=== PATIENT | male | born 1955 | race African-American/Black ===

== ENCOUNTER 2018-10-01 06:15 | Inpatient (IN) | payer BC ==
[2018-10-01 06:59] LABS: #Lymphocytes 1.3 thou/uL (1.20-3.40); #Monocytes 0.8 thou/uL (0.11-0.59); #Neutrophils 6.7 thou/uL (1.40-6.50); %Basophils 0.1 % (0.0-1.0); %Eosinophils 0.4 % (0.0-10.0); %Lymphocytes 14.7 % (21.0-51.0); %Monocytes 9.1 % (0.0-10.0); %Neutrophils 75.8 % (42.0-75.0); Hemoglobin 13.7 g/dL (14.0-18.0); Mean Corpuscular HGB CONC 30.9 g/dL (32.0-36.0); Mean Corpuscular Hemoglobin 30.8 pg (27.0-31.0); Mean Corpuscular Volume 99.7 fL (78.0-98.0); Platelet Count 278 thou/uL (130-400); RBC Distribution Width 12.4 % (11.5-14.5); Red Blood Cell (RBC) Count 4.46 mill/uL (4.70-6.10); White Blood Cell (WBC) Count 8.9 thou/uL (4.8-10.8)
[2018-10-01 07:12] LABS: ALT (SGPT) 40 U/L (8-55); AST (SGOT) 24 U/L (5-34); Alkaline Phosphatase 99 U/L (40-150); Anion Gap 33 mmol/L (10-20); BUN (Urea Nitrogen) 45 mg/dL (8.4-25.7); Bilirubin, Total 0.5 mg/dL (0.2-1.2); Calc. Creatinine Clearance 0 mL/min (70-130); Calcium 10.4 mg/dL (7.8-10.44); Carbon Dioxide 16 mmol/L (23-31); Chloride 93 mmol/L (98-107); Estimated GFR-MDRD 24; Globulin 3.3 g/dL (2.4-3.5); Potassium 5.4 mmol/L (3.5-5.1); Protein, Total 7.3 g/dL (5.8-8.1); Sodium 137 mmol/L (136-145)
[2018-10-01 07:20] LABS: Glucose 1047 mg/dL (80-115)
[2018-10-01] MEDS ORDERED: Insulin Regular 300 UNITS/3 ML VIAL ONE (07:35)
--- NOTE | 2018-10-01 08:28 | CT ---
CT OF HEAD NONCONTRAST: INDICATION: Weakness, lethargy. FINDINGS: There is no acute intracranial hemorrhage, mass effect, midline shift, or ventriculomegaly. Mild muc osal prominence is seen at the paranasal sinuses. IMPRESSION: No acute intracranial abnormalities. POS: BROOKE
[2018-10-01 08:30] LABS: Bilirubin Negative (Negative); Blood, Urine Negative (Negative); Clarity CLEAR (Clear); Glucose, Urine (Dipstick) >=1000 mg/dL (Negative); Leukocyte Negative (Negative); Nitrite Negative (Negative); Protein, Urine (Dipstick) Negative (Neg-Trace); Specific Gravity, Urine 1.029 (1.002-1.036); Urobilinogen 0.2 mg/dL (0.2-1.0)
[2018-10-01] MEDS ORDERED: HUMULIN R 100 UNITS in Sodium Chloride 0.9% 100 ML IVPB SCH ×2 (08:30→12:10)
[2018-10-01 08:37] LABS: Bicarbonate (HCO3v) 17.9 mmol/L (22.0-28.0); CO2 Tension (PvCO2) 37.4 mmHg (40.0-50.0); Calcium, Ionized 1.19 mmol/L (See Comments:); Chloride 104 mmol/L (98-107); Hemoglobin - Calc 15.7 g/dL (14.0-18.0); O2 Tension (PvO2) 30.2 mmHg (35.0-45.0); Potassium 4.4 mmol/L (3.5-5.1); Sodium 135 mmol/L (138-145); T. Carbon Dioxide 19.1 mmol/L (22.0-28.0); pH (Venous) 7.289 (7.320-7.430)
[2018-10-01] MEDS ORDERED: Acetaminophen 325 MG TAB PO PRN (12:10)
[2018-10-01] MEDS ORDERED: Dextrose 5 %-0.45 % NaCl 1,000 ML IV PRN (12:10)
[2018-10-01] MEDS ORDERED: Sodium Chloride 0.9% 1,000 ML IV PRN ×4 (12:10)
[2018-10-01] MEDS ORDERED: hydrALAZINE 20 MG/ML VIAL SLOW IVP PRN (12:10)
[2018-10-01] MEDS ORDERED: CCU Electrolyte Replacement 1 EACH IVPB ONE (12:10)
[2018-10-01] MEDS ORDERED: Magnesium 2 GM/50 ML 2 GM in Premix Bag 1 BAG IVPB PRN (12:13)
[2018-10-01] MEDS ORDERED: Magnesium Oxide 400 MG TAB PO PRN ×2 (12:13)
[2018-10-01] MEDS ORDERED: Potassium Chloride 40 MEQ in Premix Bag 1 BAG IVPB PRN (12:13)
[2018-10-01] MEDS ORDERED: Potassium Phosphate 9 MMOL in Sodium Chloride 0.9% 100 ML IVPB PRN (12:13)
[2018-10-01] MEDS ORDERED: Potassium Phosphate 12 MMOL in Sodium Chloride 0.9% 250 ML 250 ML IV PRN (12:13)
[2018-10-01] MEDS ORDERED: CCU ELECTROLYTE REPLACEMENT PROTOCOL FS PRN (12:13)
[2018-10-01] MEDS ORDERED: PHOS-NAK 1 PKT PACK PO PRN ×2 (12:13)
[2018-10-01] MEDS ORDERED: Potassium Phosphate 15 MMOL in Sodium Chloride 0.9% 250 ML 250 ML IV PRN (12:13)
[2018-10-01] MEDS ORDERED: Potassium Chloride 20 MEQ TAB PO PRN (12:13)
[2018-10-01] MEDS ORDERED: Potassium Chloride 40 MEQ in Sodium Chloride 0.9% 250 ML 250 ML IVPB PRN (12:13)
[2018-10-01] MEDS ORDERED: Aspirin 300 MG Suppository PR SCH (12:30)
[2018-10-01 12:45] VITALS: BMI 35.1
[2018-10-01] MEDS ORDERED: Prevnar 13-Val Conj/PF 0.5 ML SYRINGE IM ONE (13:00)
[2018-10-01 14:05] LABS: Anion Gap 25 mmol/L (10-20); BUN (Urea Nitrogen) 40 mg/dL (8.4-25.7); Calc. Creatinine Clearance 44 mL/min (70-130); Calcium 10.5 mg/dL (7.8-10.44); Carbon Dioxide 20 mmol/L (23-31); Chloride 104 mmol/L (98-107); Estimated GFR-MDRD 30; Potassium 4.1 mmol/L (3.5-5.1); Sodium 145 mmol/L (136-145)
[2018-10-01 14:17] LABS: Glucose 583 mg/dL (80-115)
[2018-10-01] MEDS: NS 0.9% w/ 20 MEQ KCL 1,000 ML IV PRN ×4 (15:00→23:29)
--- NOTE | 2018-10-01 15:02 | MRI ---
EXAM: MRI Brain WO Con PROVIDED CLINICAL HISTORY: Left upper extremity weakness. COMPARISON: Noncontrast CT head on 10/01/2018. FINDINGS: Scattered punctate signal abnormalities are seen within the periventricular and subcortical white mat ter which are nonspecific but likely reflective of mild chronic small vessel ischemic changes. No are as of restricted diffusion are seen to suggest an acute infarction. The septum pellucidum and third ventricle are in the midline. The ventricular system is normal in siz e, shape, and position. Appropriate flow voids are demonstrated at the base of the brain. The orbits, paranasal sinuses, and skull base demonstrate a normal MRI appearance. IMPRESSION: 1. No acute intracranial abnormality is demonstrated. 2. Mild chronic small vessel ischemic changes.
[2018-10-01] MEDS: Heparin 5,000 UNITS/ML VIAL SC SCH ×2 (15:07→19:18)
--- NOTE | 2018-10-01 15:21 | HP ---
PRIMARY CARE PHYSICIAN: Dr. Seth. CHIEF COMPLAINT: "My mouth is extremely dry," and left hand weakness. HISTORY OF PRESENT ILLNESS: Mr. Bautista is a pleasant 63-year-old gentleman, who has a history of hypertension and diabetes mellitus. He recently just finished treatment for prostate cancer as well. He had his last radiation treatment on the September 11, and he says following the treatment, he started noticing that his mouth was extremely dry and he was going to the bathroom a lot. He was also feeling a bit weak. They were assuming that these symptoms were likely related to the treatment for prostate cancer, so they did not really make much out of it. They did call their primary care physician's office, who basically reassured them and then called in a medication like Pyridium for the urinary frequency. His symptoms; however, continued and then he started getting blurry vision as well as decrease in appetite to the point where he could not eat the things that he normally ate and was taking in dietary supplement shakes like Ensure. He then started getting blurred vision and started feeling dizzy and noticed that his left hand was weaker. He was having trouble gripping things and making a fist, and his son says he even noticed when he tried to grab things, things would fall out of his hand. Because of the weakness, he came to the emergency room for evaluation. When he was in the ER, he was found to have an elevated blood glucose of over a 1000, and also noted that his creatinine was elevated and he is being admitted for diabetic ketoacidosis. Other than that, the patient denies any change in medications recently. He has not used any type of steroids. No fevers, chills, cough, or any type of infectious like symptoms, other than a few loose stools. REVIEW OF SYSTEMS: All systems were reviewed and are negative, except for that mentioned in the history of present illness. PAST MEDICAL HISTORY: Significant for prostate cancer, diabetes mellitus, and he has been diabetic for about a year, hypertension, as well as elevated cholesterol. PAST SURGICAL HISTORY: Negative. ALLERGIES: NO KNOWN DRUG ALLERGIES. SOCIAL HISTORY: He is a nonsmoker, nondrinker. FAMILY HISTORY: No history of any heritable diseases. CURRENT MEDICATIONS: Include, 1. Flomax 0.4 mg daily. 2. Atenolol 50 mg daily. 3. Losartan 100 mg daily. 4. Indapamide 1.25 mg daily. 5. Metformin 500 mg twice a day. 6. Amlodipine 5 mg daily. 7. Atorvastatin 40 mg daily. 8. Lansoprazole 30 mg daily. PHYSICAL EXAMINATION: GENERAL: He is alert and oriented. He appears to be in no acute distress other than from his dry mouth. He is well developed and well nourished. VITAL SIGNS: The blood pressure is 113/73, heart rate is 106, respiratory rate of 20, temperature is 98.1, and O2 saturation is 96% on room air. HEENT: His pupils are equal, round, and reactive to light. Extraocular muscles are intact. His sclerae are anicteric. Throat, there is no erythema, no exudate. Actually, he has very dry mucous membranes. Tympanic membranes are fairly khan. There is no fluid behind the drums. NECK: There is no adenopathy, no bruits. LUNGS: Clear to auscultation. There is no wheezing, no rales, no rhonchi. CARDIOVASCULAR: He has a normal S1 and S2. There is no S3 or S4. No murmurs, clicks or rubs. ABDOMEN: Soft. It is nontender and nondistended. Positive for bowel sounds. There is no rebound, no guarding, no organomegaly. EXTREMITIES: There is no edema and no calf tenderness. NEUROLOGIC: His cranial nerves 2 through 12 are grossly intact. His muscle strength, he did have some decrease in his core dropper strength in the left hand as well as some discoordination in the left upper extremity with some difficulty with past-pointing with the finger to nose. His left lower extremity was actually slightly weaker than the right, but he was able to lift his legs against resistance and dorsiflex and plantar flex both feet. SKIN AND INTEGUMENT: There is no significant skin changes, no rash. LABORATORY DATA: His white blood cell count is 8.9, hemoglobin is 13.7, hematocrit is 44.5, and platelet count is 278. His blood gas, the pH is 7.28, pCO2 of 37.4, and pO2 is 30.2. Sodium is 137, potassium is 5.4, chloride is 93, CO2 is 16, BUN of 45, creatinine of 3.14, glucose is 1047. Urinalysis was essentially negative other than ketones and glucose. IMAGING STUDIES: He had a CT scan of the brain, which was negative for any acute intracranial abnormalities. ASSESSMENT: This is a pleasant 63-year-old gentleman, who presents in diabetic ketoacidosis with elevated blood glucose as well as he is acidotic with an elevated anion gap. The exact precipitating factors is unclear of what pushed him into DKA; however, he will need to be admitted for treatment. He will be placed in the IMCU, started on an insulin drip as well as fluid resuscitation and electrolyte monitoring and replacement as needed. 1. Acute kidney injury. His creatinine is 3. It is unclear what his baseline is. This maybe due to prerenal azotemia as a result of the dehydration from diabetic ketoacidosis. Hopefully, this should correct with correction of his fluid or with fluid resuscitation. If this does not improve, then we will need to get a renal ultrasound and consult Nephrology for further recommendations. We will need to hold his metformin as well as losartan due to the renal insufficiency. 2. Left upper extremity weakness. We will have to assume that this is a stroke; however, it could be due to a neuropathy from the elevated blood glucose. In the meantime, we will treat him with aspirin and get an MRI to see whether or not there was an actual stroke. 3. Hypertension. Right now he is hypotensive. Therefore, we will hold his blood pressure medications and treat p.r.n. if needed. He will also be placed on DVT and GI prophylaxis. Job ID: [id number]
[2018-10-01 16:48] LABS: Anion Gap 22 mmol/L (10-20); BUN (Urea Nitrogen) 36 mg/dL (8.4-25.7); Calc. Creatinine Clearance 47 mL/min (70-130); Calcium 10.5 mg/dL (7.8-10.44); Carbon Dioxide 22 mmol/L (23-31); Chloride 106 mmol/L (98-107); Estimated GFR-MDRD 33; Glucose 448 mg/dL (80-115); Potassium 4.1 mmol/L (3.5-5.1); Sodium 146 mmol/L (136-145)
[2018-10-01 20:48] LABS: Anion Gap 15 mmol/L (10-20); BUN (Urea Nitrogen) 28 mg/dL (8.4-25.7); Calc. Creatinine Clearance 62 mL/min (70-130); Calcium 9.4 mg/dL (7.8-10.44); Carbon Dioxide 25 mmol/L (23-31); Chloride 110 mmol/L (98-107); Estimated GFR-MDRD 45; Glucose 211 mg/dL (80-115); Potassium 3.7 mmol/L (3.5-5.1); Sodium 146 mmol/L (136-145)
[2018-10-02] MEDS: D5 1/2 NS w/20 mEq KCL 1,000 ML IV PRN ×2 (01:39→05:45)
[2018-10-02 07:47] LABS: #Eosinphils 0.1 thou/uL (0.0-0.7); #Lymphocytes 1.1 thou/uL (1.20-3.40); #Monocytes 0.6 thou/uL (0.11-0.59); #Neutrophils 4.3 thou/uL (1.40-6.50); %Basophils 0.1 % (0.0-1.0); %Eosinophils 1.3 % (0.0-10.0); %Lymphocytes 18.4 % (21.0-51.0); %Monocytes 9.4 % (0.0-10.0); %Neutrophils 70.9 % (42.0-75.0); Hemoglobin 13.2 g/dL (14.0-18.0); Mean Corpuscular HGB CONC 33.7 g/dL (32.0-36.0); Mean Corpuscular Hemoglobin 31.8 pg (27.0-31.0); Mean Corpuscular Volume 94.5 fL (78.0-98.0); Mean Platelet Volume 8.4 fL (7.4-10.4); Platelet Count 206 thou/uL (130-400); RBC Distribution Width 12.4 % (11.5-14.5); Red Blood Cell (RBC) Count 4.16 mill/uL (4.70-6.10); White Blood Cell (WBC) Count 6.1 thou/uL (4.8-10.8)
[2018-10-02 08:01] LABS: Anion Gap 11 mmol/L (10-20); BUN (Urea Nitrogen) 19 mg/dL (8.4-25.7); Calc. Creatinine Clearance 71 mL/min (70-130); Carbon Dioxide 24 mmol/L (23-31); Chloride 110 mmol/L (98-107); Estimated GFR-MDRD 53; Glucose 314 mg/dL (80-115); Potassium 3.8 mmol/L (3.5-5.1); Sodium 141 mmol/L (136-145)
[2018-10-02] MEDS ORDERED: Aspirin 300 MG Suppository PR SCH (09:00)
[2018-10-02] MEDS: Heparin 5,000 UNITS/ML VIAL SC SCH ×3 (10:04→21:23)
--- NOTE | 2018-10-02 10:08 | PDOC.PN ---
- Subjective Encounter Start Date: 10/02/18 Encounter Start Time: 10:04 Mr. Bautista was seen today in follow-up of DKA. He is feeling better today. He has less dry mouth. He denies any nausea or vomiting. - Objective Resuscitation Status - Order Detail: 10/01/18 09:51 Resuscitation Status Routine Resuscitation Status: FULL: Full Resuscitation MAR Reviewed: Yes Vital Signs & Weight: Vital Signs (12 hours) Temp 10/02/18 08:00 98.4 F 10/02/18 03:53 98.0 F 10/01/18 23:00 98.1 F Weight Weight 237 lb 15.2 oz Most Recent Monitor Data Heart Rate from ECG 95 NIBP 154/65 NIBP BP-Mean 94 Respiration from ECG 12 SpO2 96 I&O: 10/01/18 10/02/18 10/03/18 06:59 06:59 06:59 Intake Total 5726 Output Total 1120 Balance 4606 Result Diagrams: 10/02/18 07:29 10/02/18 07:29 Additional Labs: Accuchecks 10/02/18 10/02/18 10/02/18 09:13 08:09 07:16 POC Glucose 296 H 303 H 290 H 10/02/18 10/02/18 10/02/18 05:50 04:58 03:48 POC Glucose 305 H 299 H 312 H 10/02/18 10/02/18 10/01/18 01:42 00:35 23:33 POC Glucose 183 H 132 H 114 H 10/01/18 10/01/18 10/01/18 22:34 21:39 20:37 POC Glucose 123 H 152 H 224 H 10/01/18 10/01/18 10/01/18 19:30 18:32 17:47 POC Glucose 398 H 284 H 335 H 10/01/18 10/01/18 10/01/18 16:30 15:36 14:12 POC Glucose 363 H 439 H 496 H 10/01/18 10/01/18 12:58 12:02 POC Glucose Greater than 550 H* Greater than 550 H* Phys Exam - Physical Examination HEENT: PERRLA oropharynx is less dry Respiratory: no wheezing, no rales, no rhonchi, clear to auscultation bilateral Cardiovascular: RRR, no significant murmur, no rub Gastrointestinal: soft, non-tender, no distention, positive bowel sounds Musculoskeletal: no edema, pulses present Dx/Plan (1) DKA, type 2 Code(s): E11.10 - TYPE 2 DIABETES MELLITUS WITH KETOACIDOSIS WITHOUT COMA Status: Acute (2) Prostate cancer Code(s): C61 - MALIGNANT NEOPLASM OF PROSTATE Status: Chronic (3) Hypertension Code(s): I10 - ESSENTIAL (PRIMARY) HYPERTENSION Status: Chronic - Plan * DKA- resolved- his AG is closed. Will transition him to Scheduled SQ insulin, and a SSI * I suspect he will need to go home on long acting insulin * Advance diet as tolerated * HTN- blood pressure is stable, can begin to re-start his home medications . * Prostate Cancer- he has recently completed radiation treatment
[2018-10-02] MEDS ORDERED: Dextrose 5% in Water 1,000 ML IV PRN (10:20)
[2018-10-02] MEDS ORDERED: Dextrose 50% Abboject 50 ML SYRINGE SLOW IVP PRN (10:20)
[2018-10-02] MEDS ORDERED: Atenolol 50 MG TAB PO SCH (10:45)
[2018-10-02] MEDS ORDERED: Insulin Glargine 15 UNITS in Pre-Filled Syringe 1 EACH SC SCH ×2 (11:00→21:00)
[2018-10-02] MEDS: HumaLOG 300 UNITS/3 ML VIAL SC PRN ×2 (16:45→21:25)
[2018-10-02] MEDS: Atorvastatin Calcium 40 MG TAB PO SCH (21:23)
--- NOTE | 2018-10-03 00:07 | CON ---
DATE OF CONSULTATION: 10/02/2018 HISTORY OF PRESENT ILLNESS: Mr. Bautista is a 63-year-old male who presented with complaints of weakness and a feeling of dehydration. He is currently being treated for prostate cancer. He has associated blurry vision and felt dizzy, so he came to the emergency room. He also thought his left hand was weak. In the emergency room, he had a head CT which showed no bleed. He had a brain MRI done yesterday which showed mild small-vessel changes, but no infarct. He says he is feeling better and feels back to his baseline. He denies having any nausea or abdominal pain. PAST MEDICAL HISTORY: Remarkable for 1. Prostate cancer. 2. History of diabetes. 3. History of hypertension. 4. History of lipid disorder. SOCIAL HISTORY: He is a nonsmoker, nondrinker. ALLERGIES: NO DRUG ALLERGIES. FAMILY HISTORY: Negative for lung disease in early age. REVIEW OF SYSTEMS: 10 point review of systems completed, otherwise negative. MEDICATIONS: Prior to admission, he is on 1. Flomax. 2. Atenolol. 3. Losartan. 4. Indapamide. 5. Metformin. 6. Amlodipine. 7. Atorvastatin. 8. Proton pump inhibitor. PHYSICAL EXAMINATION: GENERAL: He is in no distress, lying flat in bed. VITAL SIGNS: He is afebrile, heart rate 73, respiratory rate 16, oximetry is 100% on room air, blood pressure 137/89. HEENT: Pupils are equal. Sclerae are anicteric. NECK: Supple. LUNGS: Clear. HEART: Regular rhythm, S1 and S2 are normal. I do not hear murmur. ABDOMEN: Soft and nontender. EXTREMITIES: Without clubbing, cyanosis, or edema. NEURO: He has nonfocal neuro exam. LABORATORY DATA: White count 6.1, hemoglobin 13.2, platelets 206,000. Electrolytes are unremarkable. Creatinine is 1.6. Creatinine was 3.14 yesterday morning. IMPRESSION: Intravascular volume depletion related to poor p.o. intake and perhaps poorly-controlled diabetes. PLAN: Continue current care. In my opinion, he is stable to move out of the intermediate care unit. We will follow him in the intermediate care unit. This is a 50 minute consult, with greater than 50% of time spent on unit coordinating care. Job ID: [id number] [facility]
[2018-10-03] MEDS: HumaLOG 300 UNITS/3 ML VIAL SC PRN ×3 (05:56→17:32)
[2018-10-03 07:03] LABS: Anion Gap 16 mmol/L (10-20); BUN (Urea Nitrogen) 15 mg/dL (8.4-25.7); Calc. Creatinine Clearance 87 mL/min (70-130); Calcium 9.1 mg/dL (7.8-10.44); Carbon Dioxide 23 mmol/L (23-31); Chloride 103 mmol/L (98-107); Estimated GFR-MDRD 67; Glucose 338 mg/dL (80-115); Potassium 3.6 mmol/L (3.5-5.1); Sodium 138 mmol/L (136-145)
[2018-10-03] MEDS ORDERED: Insulin Glargine 15 UNITS in Pre-Filled Syringe 1 EACH SC SCH (09:00)
[2018-10-03] MEDS ORDERED: Insulin Glargine 25 UNITS in Pre-Filled Syringe 1 EACH SC SCH ×2 (09:00→21:00)
[2018-10-03] MEDS: Heparin 5,000 UNITS/ML VIAL SC SCH ×3 (09:58→20:42)
[2018-10-03] MEDS: Tamsulosin HCl 0.4 MG CAP PO SCH (09:58)
[2018-10-03] MEDS: Amlodipine 5 MG TAB PO SCH (10:00)
[2018-10-03] MEDS: Atenolol 50 MG TAB PO SCH (10:00)
[2018-10-03] MEDS: metFORMIN 500 MG TAB PO SCH (17:32)
--- NOTE | 2018-10-03 18:00 | PDOC.PN ---
- Subjective Encounter Start Date: 10/03/18 Encounter Start Time: 15:00 Mr. Bautista was seen today in follow-up of DKA. He does not have any new complaints. - Objective Resuscitation Status - Order Detail: 10/01/18 09:51 Resuscitation Status Routine Resuscitation Status: FULL: Full Resuscitation MAR Reviewed: Yes Vital Signs & Weight: Vital Signs (12 hours) Temp Pulse Resp BP BP Pulse Ox 10/03/18 11:36 98.9 F 84 18 119/73 93 L 10/03/18 10:00 91 121/77 10/03/18 07:20 99.2 F 91 18 120/78 93 L Weight Weight 237 lb 15.2 oz Most Recent Monitor Data Heart Rate from ECG 80 NIBP 127/82 NIBP BP-Mean 97 Respiration from ECG 21 SpO2 100 I&O: 10/02/18 10/03/18 10/04/18 06:59 06:59 06:59 Intake Total 5726 1006 Output Total 1120 755 Balance 4606 251 Result Diagrams: 10/02/18 07:29 10/03/18 06:24 Additional Labs: Accuchecks 10/03/18 10/03/18 10/03/18 16:40 11:37 05:47 POC Glucose 317 H 380 H 354 H 10/02/18 21:22 POC Glucose 473 H Phys Exam - Physical Examination HEENT: PERRLA Respiratory: no wheezing, no rales, no rhonchi, clear to auscultation bilateral Cardiovascular: RRR, no significant murmur, no rub Gastrointestinal: soft, non-tender, positive bowel sounds Musculoskeletal: pulses present, edema present Dx/Plan (1) DKA, type 2 Code(s): E11.10 - TYPE 2 DIABETES MELLITUS WITH KETOACIDOSIS WITHOUT COMA Status: Resolved (2) Prostate cancer Code(s): C61 - MALIGNANT NEOPLASM OF PROSTATE Status: Chronic (3) Hypertension Code(s): I10 - ESSENTIAL (PRIMARY) HYPERTENSION Status: Chronic - Plan * DKA- resolved * DM- blood glucose is still not well controlled. Will titrate Lantus insulin some further * HTN- blood pressure is stable * Prostate cancer- he has completed radiation treatment * He will need training on insulin * Hopefully home tomorrow.
[2018-10-03] MEDS: Atorvastatin Calcium 40 MG TAB PO SCH (20:43)
[2018-10-03] MEDS ORDERED: Insulin Glargine 40 UNITS in Pre-Filled Syringe SC SCH (21:00)
[2018-10-04] MEDS: HumaLOG 300 UNITS/3 ML VIAL SC PRN ×4 (05:31→20:17)
[2018-10-04] MEDS: metFORMIN 500 MG TAB PO SCH ×2 (08:05→16:38)
[2018-10-04] MEDS: Heparin 5,000 UNITS/ML VIAL SC SCH ×3 (08:05→20:16)
[2018-10-04] MEDS: Tamsulosin HCl 0.4 MG CAP PO SCH (08:05)
[2018-10-04] MEDS: Amlodipine 5 MG TAB PO SCH (08:06)
[2018-10-04] MEDS: Atenolol 50 MG TAB PO SCH (08:06)
[2018-10-04] MEDS ORDERED: Insulin Glargine 40 UNITS in Pre-Filled Syringe SC SCH (09:00)
--- NOTE | 2018-10-04 13:56 | PDOC.PN ---
- Subjective Encounter Start Date: 10/04/18 Encounter Start Time: 13:54 Patient seen and examined. No new complaints. No overnight events. feeling good. No N/V/D. No fever or chills. No chest pain. - Objective Resuscitation Status - Order Detail: 10/01/18 09:51 Resuscitation Status Routine Resuscitation Status: FULL: Full Resuscitation MAR Reviewed: Yes Vital Signs & Weight: Vital Signs (12 hours) Temp Pulse Resp BP BP BP Pulse Ox 10/04/18 11:37 98.6 F 104 H 18 107/71 92 L 10/04/18 08:06 92 101/69 10/04/18 08:00 98.5 F 92 16 101/69 95 10/04/18 02:20 98.6 F 78 17 105/69 91 L Weight Weight 237 lb 15.2 oz Most Recent Monitor Data Heart Rate from ECG 80 NIBP 127/82 NIBP BP-Mean 97 Respiration from ECG 21 SpO2 100 I&O: 10/03/18 10/04/18 10/05/18 06:59 06:59 06:59 Intake Total 1006 120 Output Total 755 Balance 251 120 Result Diagrams: 10/02/18 07:29 10/03/18 06:24 Additional Labs: Accuchecks 10/04/18 10/04/18 10/03/18 11:38 05:12 20:20 POC Glucose 290 H 246 H 359 H 10/03/18 16:40 POC Glucose 317 H Phys Exam - Physical Examination Constitutional: NAD HEENT: sclera anicteric Neck: supple Respiratory: no wheezing, no rales Cardiovascular: RRR Gastrointestinal: soft Musculoskeletal: no edema Psychiatric: normal affect, A&O x 3 Skin: no rash Dx/Plan (1) Type 2 diabetes mellitus Status: Chronic (2) Hypertension Code(s): I10 - ESSENTIAL (PRIMARY) HYPERTENSION Status: Chronic (3) Prostate cancer Code(s): C61 - MALIGNANT NEOPLASM OF PROSTATE Status: Chronic (4) DKA, type 2 Code(s): E11.10 - TYPE 2 DIABETES MELLITUS WITH KETOACIDOSIS WITHOUT COMA Status: Resolved - Plan cont current plan of care, DVT proph w/heparin * . Bs remain high will increase lantus to 50 units sq bid monitor BS AM labs.
[2018-10-04] MEDS ORDERED: Insulin Glargine 10 UNITS in Pre-Filled Syringe SC SCH (14:00)
--- NOTE | 2018-10-04 14:36 | EKG ---
Test Reason : Blood Pressure : / mmHG Vent. Rate : 106 BPM Atrial Rate : 106 BPM P-R Int : 148 ms QRS Dur : 076 ms QT Int : 334 ms P-R-T Axes : 050 021 042 degrees QTc Int : 443 ms Sinus tachycardia Nonspecific ST and T wave abnormality Abnormal ECG Confirmed by BARBARA COLLIER ([id number]), senior technical editor HENNY BAER ([id number]) on 10/04/2018 2:35:43 PM Referred By: Confirmed By:BARBARA COLLIER
[2018-10-04] MEDS: Atorvastatin Calcium 40 MG TAB PO SCH (20:16)
[2018-10-04] MEDS ORDERED: Insulin Glargine 50 UNITS in Pre-Filled Syringe SC SCH (21:00)
[2018-10-05] MEDS: Tamsulosin HCl 0.4 MG CAP PO SCH (10:26)
[2018-10-05] MEDS: Amlodipine 5 MG TAB PO SCH (10:26)
[2018-10-05] MEDS: Atenolol 50 MG TAB PO SCH (10:26)
[2018-10-05] MEDS: metFORMIN 500 MG TAB PO SCH ×2 (10:26→16:50)
[2018-10-05] MEDS: Heparin 5,000 UNITS/ML VIAL SC SCH ×3 (10:27→20:04)
[2018-10-05] MEDS: Insulin Glargine 50 UNITS in Pre-Filled Syringe SC SCH (10:28)
--- NOTE | 2018-10-05 12:02 | PDOC.PN ---
- Subjective Encounter Start Date: 10/05/18 Encounter Start Time: 12:00 Patient seen and examined. No new complaints. No overnight events. No N/V/D. - Objective Resuscitation Status - Order Detail: 10/01/18 09:51 Resuscitation Status Routine Resuscitation Status: FULL: Full Resuscitation MAR Reviewed: Yes Vital Signs & Weight: Vital Signs (12 hours) Temp Pulse Resp BP BP Pulse Ox 10/05/18 10:26 93 123/80 10/05/18 08:00 100 10/05/18 07:48 98.2 F 93 17 125/80 96 Weight Weight 237 lb 15.2 oz Most Recent Monitor Data Heart Rate from ECG 80 NIBP 127/82 NIBP BP-Mean 97 Respiration from ECG 21 SpO2 100 I&O: 10/04/18 10/05/18 10/06/18 06:59 06:59 06:59 Intake Total 120 1870 Balance 120 1870 Result Diagrams: 10/02/18 07:29 10/03/18 06:24 Additional Labs: Accuchecks 10/05/18 10/05/18 10/04/18 11:44 04:52 19:49 POC Glucose 284 H 123 H 349 H 10/04/18 16:38 POC Glucose 349 H Phys Exam - Physical Examination Constitutional: NAD HEENT: sclera anicteric Neck: supple Respiratory: no wheezing, no rales Cardiovascular: RRR Gastrointestinal: soft Musculoskeletal: no edema Neurological: non-focal, moves all 4 limbs Psychiatric: normal affect, A&O x 3 Skin: no rash Dx/Plan (1) Type 2 diabetes mellitus Status: Chronic (2) Hypertension Code(s): I10 - ESSENTIAL (PRIMARY) HYPERTENSION Status: Chronic (3) Prostate cancer Code(s): C61 - MALIGNANT NEOPLASM OF PROSTATE Status: Chronic (4) DKA, type 2 Code(s): E11.10 - TYPE 2 DIABETES MELLITUS WITH KETOACIDOSIS WITHOUT COMA Status: Resolved - Plan cont current plan of care, DVT proph w/heparin * . BS remains elevated will add Novolog 5 units tid with meals continue lantus 50 units bid. Monitor BS DC home in AM.
[2018-10-05] MEDS: HumaLOG 300 UNITS/3 ML VIAL SC PRN ×2 (13:33→16:50)
[2018-10-05] MEDS: HumaLOG 300 UNITS/3 ML VIAL SC SCH ×2 (13:33→16:50)
[2018-10-05] MEDS: Atorvastatin Calcium 40 MG TAB PO SCH (20:04)
[2018-10-05] MEDS ORDERED: Insulin Glargine 30 UNITS in Pre-Filled Syringe 1 EACH SC SCH (21:00)
[2018-10-06] MEDS: Atenolol 50 MG TAB PO SCH (08:58)
[2018-10-06] MEDS: metFORMIN 500 MG TAB PO SCH ×2 (08:58→16:43)
[2018-10-06] MEDS: Heparin 5,000 UNITS/ML VIAL SC SCH ×2 (08:58→15:05)
[2018-10-06] MEDS: Amlodipine 5 MG TAB PO SCH (08:58)
[2018-10-06] MEDS: Tamsulosin HCl 0.4 MG CAP PO SCH (08:58)
[2018-10-06] MEDS: Insulin Glargine 50 UNITS in Pre-Filled Syringe SC SCH (08:59)
[2018-10-06] MEDS: HumaLOG 300 UNITS/3 ML VIAL SC SCH ×3 (08:59→16:43)
--- NOTE | 2018-10-06 10:34 | PDOC.PN ---
- Subjective Encounter Start Date: 10/06/18 Encounter Start Time: 11:30 Subjective: Patient feeling much better. Weakness resolved. Understands how to -: take his insulins. Educated on hypoglycemic symptoms and will by a -: glucometer at the store. - Objective Resuscitation Status - Order Detail: 10/01/18 09:51 Resuscitation Status Routine Resuscitation Status: FULL: Full Resuscitation MAR Reviewed: Yes Vital Signs & Weight: Vital Signs (12 hours) Temp Pulse Resp BP BP BP Pulse Ox 10/06/18 08:58 76 113/75 10/06/18 08:55 96 10/06/18 07:00 98.3 F 76 18 113/75 96 10/06/18 04:00 98.2 F 80 18 102/68 94 L 10/06/18 00:00 98.7 F 80 18 105/69 94 L Weight Weight 237 lb 15.2 oz Most Recent Monitor Data Heart Rate from ECG 80 NIBP 127/82 NIBP BP-Mean 97 Respiration from ECG 21 SpO2 100 I&O: 10/05/18 10/06/18 10/07/18 06:59 06:59 06:59 Intake Total 1870 2500 Balance 1870 2500 Result Diagrams: 10/02/18 07:29 10/03/18 06:24 Additional Labs: Accuchecks 10/06/18 10/06/18 10/05/18 05:12 01:56 20:03 POC Glucose 185 H 205 H 193 H 10/05/18 10/05/18 15:47 11:44 POC Glucose 263 H 284 H Phys Exam - Physical Examination Constitutional: NAD HEENT: moist MMs Respiratory: no wheezing, no rales, no rhonchi, clear to auscultation bilateral Cardiovascular: RRR, no significant murmur Gastrointestinal: soft, positive bowel sounds Neurological: non-focal, moves all 4 limbs Psychiatric: normal affect, A&O x 3 Dx/Plan (1) DKA, type 2 Code(s): E11.10 - TYPE 2 DIABETES MELLITUS WITH KETOACIDOSIS WITHOUT COMA Status: Resolved (2) Type 2 diabetes mellitus Status: Chronic Comment: improved blood sugar control (3) Hypertension Code(s): I10 - ESSENTIAL (PRIMARY) HYPERTENSION Status: Chronic (4) Prostate cancer Code(s): C61 - MALIGNANT NEOPLASM OF PROSTATE Status: Chronic - Plan cont current plan of care d/c home today * . - Discharge Day Encounter end time: 12:00
[2018-10-06 16:39] VITALS: BP 112/74; TEMP 98.6
--- NOTE | 2018-10-07 13:00 | DIS ---
DATE OF ADMISSION: 10/01/2018 DATE OF DISCHARGE: 10/06/2018 PRIMARY CARE PHYSICIAN: Dr. Obed Seth at [facility]. REASON FOR ADMISSION: 1. Extreme hyperglycemia with diabetic ketoacidosis versus starvation ketosis. DIAGNOSES AT DISCHARGE: 1. Diabetic hyperglycemia with possible diabetic ketoacidosis, resolved. 2. Diabetes mellitus type 2, now insulin dependent. 3. Hypertension. 4. Prostate cancer. PROCEDURES: 1. CT of the brain showing no acute intracranial abnormalities. 2. MRI of the brain showing no acute intracranial abnormality with mild chronic small-vessel ischemic changes. CONSULTATIONS: Pulmonology, Dr. Boykin. SUMMARY OF HOSPITAL COURSE: This is a 63-year-old male with a history of hypertension and type 2 diabetes on oral hypoglycemics only, being treated for prostate cancer as well. He is noted to have extreme dry mouth and is going to the bathroom a lot since his laceration treatment on September 11. He was taking dietary shakes like Ensure and trying to eat normally, but he started having drop in his appetite. He started feeling blurred vision, dizziness, notices that his left hand was weaker than his right, overall weakness as well, sent to the emergency room, had a blood sugar over 1000, elevated creatinine, was noted to have some acidosis and ketones, concern for possible DKA versus starvation ketosis with severe hyperglycemia from progression of his diabetes. The patient was put on insulin drip, given IV fluids. He had resolution of his hyperglycemia. He was started on Lantus eventually and with good control of his blood sugars at 50 units per day. He had resolution of his elevated creatinine as well. The patient did have the left upper extremity weakness concerning for stroke. He had MRI done, which showed no stroke. His energy level returned to normal and his weakness resolved with treatment of his hyperglycemia. On the day of discharge, the patient was comfortable getting his insulin and is ready to go home. He was educated on symptoms for hypoglycemia. DISCHARGE MANAGEMENT: Discharged home. FOLLOWUP: Follow up with Dr. Seth as scheduled on the . ACTIVITY: As tolerated. DIET: Diabetic diet. The patient is to buy a glucometer from the pharmacy and check his blood sugar at least once a day. DISCHARGE MEDICATIONS: 1. Lantus 50 units subcu each morning, 2 vials dispensed. 2. Continue amlodipine 5 mg daily. 3. Atenolol 50 mg daily. 4. Atorvastatin 40 mg daily. 5. Metformin 500 mg twice a day. 6. Tamsulosin 0.4 mg daily. 7. Indapamide 1.25 mg daily. 8. Lansoprazole 30 mg daily. 9. Losartan 100 mg daily. Arranging the details of this discharge took 32 minutes. Job ID: [id number]
== END 2018-10-06 17:40 | disposition home or self-care (01) | DRG 638 ==
LOC: ERS 06:15 → IMCU/EMU 08:42 → T4-B 10-02 18:06
PROVIDERS: ADMIT Internal Medicine; ATTEND Internal Medicine
DX: E11.10 Type 2 diabetes mellitus with ketoacidosis without coma (principal); N17.9 Acute kidney failure, unspecified; I10 Essential (primary) hypertension; E78.00 Pure hypercholesterolemia, unspecified; C61 Malignant neoplasm of prostate; E86.0 Dehydration; R53.1 Weakness; Z79.84 Long term (current) use of oral hypoglycemic drugs; Z92.3 Personal history of irradiation
CPT/HCPCS: 36415; 36416; 70450; 70551; 80048; 80053; 81003; 82010; 82330; 82803; 84484; 85025; 93005; 96361; 96365; 96366; 96376; J1644; J1815; J1825; J3480; J3490